=== PATIENT | female | born 1935 | race Caucasian/White ===

== ENCOUNTER 2018-06-10 20:58 | Emergency (ER) | payer OTHER ==
[~2018-06-10] VITALS: Ht 152.4 cm; Wt 65.8 kg
[~2018-06-10 20:58] MED LIST: CATAFLAM50 MG PO; LOTRISONE CREAM45 GM TP
[2018-06-10] MEDS ORDERED: CATAPRES0.1 MG (21:21)
[2018-06-10] MEDS ORDERED: XARELTO20 MG (21:22)
[2018-06-10] MEDS ORDERED: IRBESARTAN-HCT1 EAC1 (21:22)
[2018-06-10] MEDS ORDERED: TOPROL XL100 M1 (21:22)
== END 2018-06-11 02:12 | disposition home or self-care (01) ==
LOC: ER 20:58
DX: I16.0 Hypertensive urgency (principal); I10 Essential (primary) hypertension; R42 Dizziness and giddiness